=== PATIENT | female | born 1980 | race Caucasian/White ===

== ENCOUNTER → 2016-11-10 | Outpatient (CLI) | payer OTHER ==
--- NOTE | 2016-11-10 09:03 | RAD ---
Pelvic ultrasound, 11/10/2016: History: Dysmenorrhea Transabdominal scans were obtained. The lower uterine segment was not well delineated due to retroflexion. The central uterine echo complex is best delineated in the superior aspect of the uterus. It is mildly thickened measuring 15 mm in greatest AP dimension. The uterus is otherwise unremarkable. There is a 2.2 cm cyst in the right ovary. The left ovary is unremarkable. Blood flow is present in both ovaries. No significant free fluid is identified in the pelvis. IMPRESSION: 1. Retroflexed uterus. 2. Mild nonspecific thickening of the central uterine echo complex. 3. Small right ovarian cyst.
== END | disposition home or self-care (01) ==
LOC: US 06:41
PROVIDERS: ATTEND Obstetrics & Gynecology
DX: N94.6 Dysmenorrhea, unspecified (principal); N83.201 Unspecified ovarian cyst, right side; N92.0 Excessive and frequent menstruation with regular cycle
CPT/HCPCS: 76856

== ENCOUNTER 2016-12-17 09:41 | Observation (INO) | payer OTHER ==
[~2016-12-17] VITALS: Ht 177.8 cm; Wt 81.6 kg
[~2016-12-17 09:41] MED LIST: HYDROmorphone 2 MG/ML VIAL IV PRN; IBUP-1027 PO; IV RINGERS,LACTATED 1000ML 1,000 ML IV SCH; LANS30CA66 PO; LIDOCAINE 1% 1 ML SYRINGE. ID PRN; MONT10TA9 PO; ONDANSETRON PF 4 MG/2 ML VIAL. IV PRN; PROAIR HFA8.5 GM INH; PROCHLORPERAZINE 10 MG/2 ML VIAL. IV PRN; SERT100T PO; fentaNYL PF VIAL 100 MCG/2 ML VIAL IV PRN
[2016-12-17] MEDS ORDERED: DEXAMETHASONE SOD PHOS 20 MG/5 ML VIAL. ONE (09:56)
[2016-12-17] MEDS ORDERED: DESFLURANE 61 TO 120 MINUTES IH ONE (09:56)
[2016-12-17] MEDS ORDERED: ONDANSETRON PF 4 MG/2 ML VIAL. ONE (09:56)
[2016-12-17] MEDS ORDERED: PROPOFOL 20 ML IV ONE (09:56)
[2016-12-17] MEDS ORDERED: MIDAZOLAM HCL/PF 2 MG/2 ML VIAL. ONE (09:56)
[2016-12-17] MEDS ORDERED: ROCURONIUM 50 MG/5 ML VIAL. ONE (09:56)
[2016-12-17] MEDS ORDERED: fentaNYL PF VIAL 100 MCG/2 ML VIAL ONE ×2 (09:56→14:17)
[2016-12-17] MEDS ORDERED: LIDOCAINE 2% PF Vial for OR 5 ML VIAL. ONE (09:56)
[2016-12-17 10:00] LABS: NEG OBC UR NEG; POS OBC UR POS
[2016-12-17 10:21] LABS: BASO % 1 % (0-3); EOS % 1 % (0-3); HEMOGLOBIN 11.3 g/dL (12.0-15.5); LYMPH # 2.1 x10^3/uL (1.0-4.8); LYMPH % 27 % (24-48); MEAN CORPUSCULAR HEMOGLOBIN 27 pg (25-35); MEAN CORPUSCULAR HGB CONC 33 g/dL (31-37); MEAN CORPUSCULAR VOLUME 82 fL (79-100); MONO % 8 % (0-9); NEUT % 64 % (31-73); PLATELET COUNT 249 x10^3/uL (140-400); RED BLOOD COUNT 4.15 x10^6/uL (3.50-5.40); RED CELL DISTRIBUTION WIDTH 15.2 % (11.5-14.5); WHITE BLOOD COUNT 7.9 x10^3/uL (4.0-11.0)
[2016-12-17] MEDS ORDERED: SURGICEL HEMOSTAT 4X8 EACH. ONE (11:37)
[2016-12-17] MEDS ORDERED: ESTROGENS, CONJ VAGINAL CREAM 30GM TUBE. ONE (11:38)
[2016-12-17] MEDS ORDERED: BUPIVACAINE-EPI 0.25%-1:200000 50 ML VIAL. ONE (11:38)
[2016-12-17] MEDS ORDERED: LIDOCAINE 1%/EPI 1:100,000 20 ML VIAL. ONE (11:38)
[2016-12-17] MEDS ORDERED: GLYCOPYRROLATE 1 MG/5 ML VIAL. ONE (13:12)
[2016-12-17] MEDS ORDERED: NEOSTIGMINE METHYLSULFATE 5 MG/5 ML SYRINGE. ONE (13:12)
--- NOTE | 2016-12-17 14:14 | PDOC ---
BRIEF OPERATIVE NOTE Pre-Op Diagnosis 1. Fibroids 2. Menorrhagia 3. Dysmenorrhea Post-Op Diagnosis SAme Procedure Performed TLH via [facility] Surgeon Dr. Lily Aguilar Anesthesia Type: General Blood Loss 100 ml Specimens Obtained uterus, cervix Findings enlarged, fibroid uterus; nml fallopian tubes and ovaries cedrick. Complications none ADAL CHOU Jr, MD Dec 17, 2016 14:14
[2016-12-17] MEDS ORDERED: ZOLPIDEM 5 MG TABLET. PO PRN (14:15)
[2016-12-17] MEDS ORDERED: CALCIUM CARBONATE 500 MG TAB.CHEW PO PRN (14:15)
[2016-12-17] MEDS ORDERED: diphenhydrAMINE 50 MG/ML VIAL IV PRN (14:15)
[2016-12-17] MEDS ORDERED: KETOROLAC TROMETHAMINE 30 MG/ML INJ. IV PRN (14:15)
[2016-12-17] MEDS ORDERED: diphenhydrAMINE HCL 25 MG CAPSULE PO PRN (14:15)
[2016-12-17] MEDS ORDERED: ONDANSETRON PF 4 MG/2 ML VIAL. IV PRN (14:15)
[2016-12-17] MEDS ORDERED: PROCHLORPERAZINE 10 MG/2 ML VIAL. IV PRN (14:15)
[2016-12-17] MEDS ORDERED: SIMETHICONE 80 MG TAB.CHEW PO PRN (14:15)
[2016-12-17] MEDS ORDERED: 0.9 % SODIUM CHLORIDE 10 ML DISP.SYRIN. IV PRN (14:15)
[2016-12-17] MEDS ORDERED: DEXTROSE 50% 25 GM / 50ML DISP.SYRIN. IV PRN (14:15)
[2016-12-17] MEDS ORDERED: MORPHINE SULFATE 10 MG/ML VIAL. ONE (14:25)
[2016-12-17] MEDS: fentaNYL PF VIAL 100 MCG/2 ML VIAL IV PRN ×2 (14:41→14:55)
[2016-12-17] MEDS: MORPHINE SULFATE 2 MG/ML DISP.SYRIN. IV PRN ×2 (14:47→15:03)
[2016-12-17] MEDS ORDERED: OPIUM/BELLADONNA 30/16.2MG SUPP.RECT. PR ONE (15:00)
[2016-12-17 16:00] VITALS: BP 119/70
[2016-12-17 17:21] VITALS: BP 111/58
[2016-12-17] MEDS: oxyCODONE/APAP 5/325 1 TAB TABLET PO PRN (18:35)
[2016-12-17 21:30] VITALS: BP 108/63
[2016-12-17] MEDS: GABAPENTIN 300 MG CAPSULE. PO SCH (22:00)
[2016-12-18] MEDS: oxyCODONE/APAP 5/325 1 TAB TABLET PO PRN ×2 (00:03→09:32)
[2016-12-18 02:09] VITALS: BP 104/62
[2016-12-18 05:10] LABS: BASO % 0 % (0-3); EOS % 0 % (0-3); HEMATOCRIT 28.8 % (36.0-47.0); LYMPH # 2.1 x10^3/uL (1.0-4.8); LYMPH % 15 % (24-48); MEAN CORPUSCULAR HEMOGLOBIN 27 pg (25-35); MEAN CORPUSCULAR HGB CONC 31 g/dL (31-37); MEAN CORPUSCULAR VOLUME 84 fL (79-100); MONO % 8 % (0-9); NEUT % 77 % (31-73); PLATELET COUNT 213 x10^3/uL (140-400); RED BLOOD COUNT 3.41 x10^6/uL (3.50-5.40); RED CELL DISTRIBUTION WIDTH 15.1 % (11.5-14.5); WHITE BLOOD COUNT 14.4 x10^3/uL (4.0-11.0)
[2016-12-18] MEDS: GABAPENTIN 300 MG CAPSULE. PO SCH (06:06)
[2016-12-18 06:09] VITALS: BP 102/50
[2016-12-18 08:25] VITALS: BP 112/63
--- NOTE | 2016-12-18 09:17 | PDOC ---
SURGICAL PROGRESS NOTE Subjective Pt. feeling well. Pain controlled, ambulating, voiding and tolerating regular diet. Vital Signs Vital Signs Date Time Temp Pulse Resp B/P (MAP) Pulse Ox O2 Delivery O2 Flow Rate FiO2 12/18/16 06:09 98.5 68 18 102/50 (67) 95 Room Air 98.5 12/17/16 16:00 99.0 I&O Intake and Output 12/18/16 07:00 Intake Total 2490 ml Output Total 1900 ml Balance 590 ml Intake Oral 1040 ml IV Total 1450 ml Output Urine Total 1800 ml Estimated Blood Loss 100 ml PATIENT HAS A HAZEL: No General: Alert, Oriented X3, Cooperative HEENT: Atraumatic Lungs: Clear to auscultation Heart: Regular rate Abdomen: Normal bowel sounds, Soft Psych/Mental Status: Mental status NL Labs Laboratory Tests Test 12/17/16 09:52 12/17/16 10:05 12/18/16 04:35 Urine Test Negative (NEG) White Blood Count 7.9 x10^3/uL (4.0-11.0) 14.4 x10^3/uL (4.0-11.0) Red Blood Count 4.15 x10^6/uL (3.50-5.40) 3.41 x10^6/uL (3.50-5.40) Hemoglobin 11.3 g/dL (12.0-15.5) 9.0 g/dL (12.0-15.5) Hematocrit 34.0 % (36.0-47.0) 28.8 % (36.0-47.0) Mean Corpuscular Volume 82 fL (79-100) 84 fL (79-100) Mean Corpuscular Hemoglobin 27 pg (25-35) 27 pg (25-35) Mean Corpuscular Hemoglobin Concent 33 g/dL (31-37) 31 g/dL (31-37) Red Cell Distribution Width 15.2 % (11.5-14.5) 15.1 % (11.5-14.5) Platelet Count 249 x10^3/uL (140-400) 213 x10^3/uL (140-400) Neutrophils (%) (Auto) 64 % (31-73) 77 % (31-73) Lymphocytes (%) (Auto) 27 % (24-48) 15 % (24-48) Monocytes (%) (Auto) 8 % (0-9) 8 % (0-9) Eosinophils (%) (Auto) 1 % (0-3) 0 % (0-3) Basophils (%) (Auto) 1 % (0-3) 0 % (0-3) Neutrophils # (Auto) 5.1 x10^3uL (1.8-7.7) 11.0 x10^3uL (1.8-7.7) Lymphocytes # (Auto) 2.1 x10^3/uL (1.0-4.8) 2.1 x10^3/uL (1.0-4.8) Monocytes # (Auto) 0.6 x10^3/uL (0.0-1.1) 1.2 x10^3/uL (0.0-1.1) Eosinophils # (Auto) 0.1 x10^3/uL (0.0-0.7) 0.0 x10^3/uL (0.0-0.7) Basophils # (Auto) 0.0 x10^3/uL (0.0-0.2) 0.0 x10^3/uL (0.0-0.2) Laboratory Tests Test 12/17/16 09:52 12/17/16 10:05 12/18/16 04:35 Urine Test Negative (NEG) White Blood Count 7.9 x10^3/uL (4.0-11.0) 14.4 x10^3/uL (4.0-11.0) Red Blood Count 4.15 x10^6/uL (3.50-5.40) 3.41 x10^6/uL (3.50-5.40) Hemoglobin 11.3 g/dL (12.0-15.5) 9.0 g/dL (12.0-15.5) Hematocrit 34.0 % (36.0-47.0) 28.8 % (36.0-47.0) Mean Corpuscular Volume 82 fL (79-100) 84 fL (79-100) Mean Corpuscular Hemoglobin 27 pg (25-35) 27 pg (25-35) Mean Corpuscular Hemoglobin Concent 33 g/dL (31-37) 31 g/dL (31-37) Red Cell Distribution Width 15.2 % (11.5-14.5) 15.1 % (11.5-14.5) Platelet Count 249 x10^3/uL (140-400) 213 x10^3/uL (140-400) Neutrophils (%) (Auto) 64 % (31-73) 77 % (31-73) Lymphocytes (%) (Auto) 27 % (24-48) 15 % (24-48) Monocytes (%) (Auto) 8 % (0-9) 8 % (0-9) Eosinophils (%) (Auto) 1 % (0-3) 0 % (0-3) Basophils (%) (Auto) 1 % (0-3) 0 % (0-3) Neutrophils # (Auto) 5.1 x10^3uL (1.8-7.7) 11.0 x10^3uL (1.8-7.7) Lymphocytes # (Auto) 2.1 x10^3/uL (1.0-4.8) 2.1 x10^3/uL (1.0-4.8) Monocytes # (Auto) 0.6 x10^3/uL (0.0-1.1) 1.2 x10^3/uL (0.0-1.1) Eosinophils # (Auto) 0.1 x10^3/uL (0.0-0.7) 0.0 x10^3/uL (0.0-0.7) Basophils # (Auto) 0.0 x10^3/uL (0.0-0.2) 0.0 x10^3/uL (0.0-0.2) Assessment/Plan POD#1 s/p [facility] P: D/c home. Problems: ADAL CHOU Jr, MD Dec 18, 2016 09:17
--- NOTE | 2016-12-18 09:18 | DISCH ---
DISCHARGE INSTRUCTIONS Condition on Discharge Condition on Discharge: Stable Activity After Discharge Activity Instructions for Disc: Activity as tolerated Lifting Instructions after Dis: No heavy lifting Driving Instructions after Dis: Do not drive today Diet after Discharge Diet after Discharge: Regular Contacting the DRSindy after DC Call your doctor for: Concerns you may have Follow-Up Follow up with: Dr. Bautista in 2 weeks. ADAL BAUTISTA Jr, MD Dec 18, 2016 09:18
[2016-12-18 12:55] VITALS: BP 110/50
--- NOTE | 2016-12-18 17:00 | PDOC4 ---
OPERATIVE NOTE: PreOp Dx: Fibroids Menorrhagia Dysmenorrhea PostOp Dx: Same Procedure: TLH via [facility] Description: Pt. taken to surgery suite and placed in dorsolithotomy position. She was prepped and draped in normal fashion. Bi-valve speculum placed vaginally. Single tooth tenaculum placed on anterior lip of cervix. DARIUS uterine manipulator placed. Single tooth tenaculum and speculum removed. Attention now placed on abdomen. Small transversion skin incision made with scalpel just below umbilicus. Veres needle placed through incision site to insuflate abdomen to 1.5 L CO2. Veres needle removed and 8 mm tocar placed. Camera was placed. Two additional incisions were made in Right and Left lower quadrant for 8 mm port sites. An accessory port site was placed in upper Left quadrant. The [facility] robot was docked in normal fashion. I then proceeded to the curriculum counselor. I utilized the vessel sealer and bipolar cautery for the procedure. The Right round ligament was coagulated and dissected. THe Right broad ligament was coagulated and dissected, including the Right uterine artery. A bladder flap was created with blunt dissection and with aid from the vessel sealer. The same process took place with the Left adnexa. Colpotomy was performed with the spatula at the level of the cervical ring. The uterus and cervix were removed. The vaginal cuff was reapproximated with V-lock suture in running fashion. Suction irrigation was used to verify good hemostasis. The ureters were visualized and functioning normally. The robot was undocked and the trocars removed. The skin incision sites were reapproximated with 4-0 vicryl in subcutaneous manner. 0.25% Marcaine with epinephrine was injected at each incision site. Moist vaginal packing was placed. Pt. tolerated procedure well. Sponge and needle count correct x 3. Pt. taken to PACU in stable condition. ADAL CHOU Jr, MD Dec 18, 2016 17:00
--- NOTE | 2016-12-21 14:25 | PATHOLOGY ---
PATHOLOGY REPORT * * * * * * * * FINAL DIAGNOSIS: Uterus, hysterectomy: - Cervix with mild chronic inflammation, squamous metaplasia, and nabothian cysts. - Secretory phase endometrium. - Myometrium and serosal surface with no pathologic diagnosis. (SKM:; 12/21/2016) REPORT ELECTRONICALLY SIGNED BY: Jackelyn Hung M.D. DATE/TIME: 12/21/2016 14:24 * * * * * * * * GROSS PATHOLOGY: The specimen is received in formalin labeled "Trudi Sky, uterus, cervix". Received is a 185 g, 10.2 x 7.5 x 4.8 cm uterus with attached cervix. The uterine serosa is pink-villa in appearance with a moderate amount of overlying adhesions. The 1.1 cm cervical os is surrounded by pale salcido, smooth ectocervical mucosa. The uterus is oriented using the peritoneal reflection and the anterior paracervical margin is inked black. The uterus is opened laterally to reveal a pale salcido, corrugated endocervical canal measuring 3.3 cm in length. The endometrial cavity is triangular measuring 4.4 cm in length by 2.9 cm in width. The endometrium is pale salcido, granular to shaggy in appearance and measures 0.1 cm in thickness. Serial sectioning reveals a pale salcido, trabeculated myometrium measuring up to 3.1 cm in thickness with no grossly distinct nodules or lesions. The specimen is submitted representatively as follows: A1 12:00 cervix A2 6:00 cervix A3 anterior endomyometrium A4 posterior endomyometrium. (CAA; 12/19/2016) INITIAL CPT CODE(S): A; 56191 Professional services performed by [facility] at [address] [address] Technical services performed by [facility] at [address] [place] [address], [facility] [address] [address]. SPECIMEN(S) RECEIVED: A.Uterus and cervix CLINICAL HISTORY: Abnormal uterine bleeding; dysmenorrhea, menorrhagia PATIENT: TRUDI SKY /AGE: 106/29/1980 (Age: 36) PATIENT #: [id number] ALT CASE #: SPECIMEN COLLECTION DATE: 12/17/2016 SPECIMEN RECEIVED DATE: 12/18/2016 [facility] - [address] [place] [id number] - PHONE: [phone] * * * END OF REPORT * * *
== END 2016-12-18 13:05 | disposition home or self-care (01) ==
LOC: SURG 09:41 → 3 NORTH 14:16
PROVIDERS: ADMIT Obstetrics & Gynecology; ATTEND Obstetrics & Gynecology
DX: D25.9 Leiomyoma of uterus, unspecified (principal); N92.0 Excessive and frequent menstruation with regular cycle; N94.6 Dysmenorrhea, unspecified
CPT/HCPCS: 36415; 58571; 81025; 85027; 86850; 86900; 86901; A4215; G0378; G0379; J1100; J1170; J2001; J2250; J2270; J2405; J2704; J2710; J3010; J3490; J7030; Q0163; S2900; 88307